=== PATIENT | male | born 2000 | race Caucasian/White ===

== ENCOUNTER 2023-04-07 23:08 | Emergency (ER) | payer SELFPAY ==
[2023-04-07 23:14] VITALS: BP 139/83; PULSE 129; RESP 18; TEMP 99; BMI 22.9
== END 2023-04-07 23:51 | disposition home or self-care (01) ==
LOC: JER 23:08 → JERFT 23:08
DX: S50.11XA Contusion of right forearm, initial encounter (principal); M79.631 Pain in right forearm; R22.31 Localized swelling, mass and lump, right upper limb; V00.838A Other accident with motorized mobility scooter, initial encounter; Y93.55 Activity, bike riding
CPT/HCPCS: 73090-TC-RT-FY; 73110-TC-RT-FY; 73130-TC-RT-FY; 99283-25